=== PATIENT | female | born 1960 | race Two or more races ===

== ENCOUNTER 2017-01-14 15:10 | Emergency (ER) | payer SELFPAY | END 2017-01-14 16:49 | disposition left against medical advice (07) | LOC: ER 15:18 | DX: Z53.21 Procedure and treatment not carried out due to patient leaving prior to being seen by health care provider (principal) ==

== ENCOUNTER 2019-09-30 08:38 | Inpatient (IN) | payer MEDICARE, MEDICAID ==
[~2019-09-30] VITALS: Ht 152.4 cm; Wt 65.0 kg
[2019-09-30] MEDS ORDERED: HYDROCODONE/APAP 5/325MG 1 EACH TABLET PO ONE (09:00)
[2019-09-30] MEDS ORDERED: methylPREDNISolone SOD SUCC 125 MG/2ML VIAL IV ONE (09:00)
[2019-09-30] MEDS ORDERED: ALBUTEROL FS 2.5 MG/3 ML VIAL.NEB CONTNEB ONE (09:00)
[2019-09-30] MEDS ORDERED: methylPREDNISolone SOD SUCC 125 MG/2ML VIAL ONE ×2 (09:00→09:51)
[2019-09-30] MEDS ORDERED: ALBUTEROL FS 2.5 MG/3 ML VIAL.NEB NEB ONE (09:00)
[2019-09-30] MEDS ORDERED: HYDROCODONE/APAP 5/325MG 1 EACH TABLET ONE (09:01)
[2019-09-30] MEDS ORDERED: ALBUTEROL FS 2.5 MG/3 ML VIAL.NEB ONE (09:23)
[2019-09-30] MEDS ORDERED: ONDANSETRON HCL/PF 4 MG/2 ML VIAL ONE (09:51)
[2019-09-30] MEDS ORDERED: MORPHINE SULFATE INJ 2 MG/ML DISP.SYRIN ONE (09:52)
[2019-09-30 09:59] LABS: BASOPHILS # (AUTO) 0.1 /CMM (0.0-0.2); HEMATOCRIT 33 % (33-45); HEMOGLOBIN 11.1 g/dL (11.5-14.8); LYMPHOCYTES # (AUTO) 1.8 /CMM (0.8-4.8); LYMPHOCYTES % (AUTO) 13.6 % (20.0-44.0); MEAN CORPUSCULAR HGB CONC 33 g/dl (31.0-36.0); MEAN CORPUSCULAR VOLUME 91 fL (82-100); MONOCYTES # (AUTO) 0.8 /CMM (0.1-1.30); NEUTROPHILS # (AUTO) 10.3 /CMM (1.8-8.9); NEUTROPHILS % (AUTO) 76.4 % (43.0-81.0); PLATELET COUNT (AUTO) 345 /CMM (150-450); RED BLOOD CELL COUNT(AUTO) 3.66 MIL/uL (4.0-5.2); WHITE BLOOD COUNT (AUTO) 13.5 K/uL (4.3-11.0)
[2019-09-30] MEDS ORDERED: ONDANSETRON HCL/PF - ER 4 MG/2 ML VIAL IV ONE (10:00)
[2019-09-30] MEDS ORDERED: MORPHINE SULFATE INJ 2 MG/ML DISP.SYRIN IV ONE (10:00)
[2019-09-30 10:07] LABS: CALCIUM, SERUM 8.5 mg/dL (8.5-10.1); CARBON DIOXIDE 24 mmol/L (21-32); CHLORIDE 108 mmol/L (98-107); CREATININE 1.5 mg/dL (0.6-1.3); GLUCOSE 129 mg/dL (74-106); POTASSIUM 3.8 mmol/L (3.5-5.1); SODIUM SERUM 142 mmol/L (136-145); UREA NITROGEN, BLOOD 26 mg/dL (7-18)
[2019-09-30 10:19] LABS: ALANINE AMINOTRANSFERASE 43 U/L (12-78); ALBUMIN 2.9 g/dL (3.4-5.0); ALKALINE PHOSPHATASE 88 U/L (46-116); ASPARTATE AMINOTRANSFERASE 67 U/L (15-37); B-TYPE NATRIURETIC PEPTIDE 445 PG/ML (0-125); BILIRUBIN,DIRECT 0.1 mg/dL (0.0-0.2); BILIRUBIN,TOTAL 0.2 mg/dL (0.2-1.0)
[2019-09-30] MEDS ORDERED: FLUT16SP16 BNOSTRILS (10:22)
[2019-09-30] MEDS ORDERED: PROM118S PO (10:22)
[2019-09-30] MEDS ORDERED: TOPI50TA24 PO (10:22)
[2019-09-30] MEDS ORDERED: FLUT1BLS INH (10:22)
[2019-09-30] MEDS ORDERED: LEVO50TA8 PO (10:22)
[2019-09-30] MEDS ORDERED: ALBU18HF2 INH (10:22)
[2019-09-30] MEDS ORDERED: ACET-1951 PO (10:22)
[2019-09-30] MEDS ORDERED: FURO40TA5 PO (10:22)
[2019-09-30] MEDS ORDERED: DILT180C92 PO (10:22)
[2019-09-30] MEDS ORDERED: CARB200T PO (10:22)
[2019-09-30] MEDS ORDERED: PARI1CAP3 PO (10:22)
[2019-09-30] MEDS ORDERED: ONDA4VIA23 IM (10:22)
[2019-09-30] MEDS ORDERED: MONT10TA22 PO (10:22)
[2019-09-30] MEDS ORDERED: TEMA30CA PO (10:22)
[2019-09-30] MEDS ORDERED: MAG HYDROX/AL HYDROX/SIMETH 30 ML UDC PO PRN (12:00)
[2019-09-30] MEDS ORDERED: FLUTICASONE PROPIONATE 16 GM BOTTLE NS PRN (12:00)
[2019-09-30] MEDS ORDERED: Z GUARD REMEDY 2 OZ OINT TP PRN (12:00)
[2019-09-30] MEDS ORDERED: ONDANSETRON HCL/PF 4 MG/2 ML VIAL IVP PRN (12:00)
[2019-09-30] MEDS ORDERED: ZOLPIDEM TARTRATE 5 MG TABLET PO PRN (12:00)
[2019-09-30] MEDS ORDERED: MAGNESIUM HYDROXIDE 30 ML UDC PO PRN (12:00)
[2019-09-30] MEDS ORDERED: ACETAMINOPHEN 325 MG TABLET PO PRN (12:00)
[2019-09-30 12:59] LABS: MAGNESIUM 1.8 mg/dL (1.8-2.4); PHOSPHORUS 2.4 mg/dL (2.5-4.9)
[2019-09-30] MEDS ORDERED: BUMETANIDE INJ 4 MG in IV D5W 24 ML IV ONE (13:00)
[2019-09-30 13:51] LABS: THYROID STIMULATING HORMONE 1.608 uIU/mL (0.358-3.74)
[2019-09-30 15:00] VITALS: BP 102/50
[2019-09-30 16:00] VITALS: BP 113/73
[2019-09-30] MEDS: PROCHLORPERAZINE EDISYLATE 10 MG/2 ML VIAL IM PRN (16:06)
[2019-09-30] MEDS: ENOXAPARIN SODIUM 80 MG/0.8 ML DISP.SYRIN SQ SCH ×2 (16:13→21:00)
[2019-09-30] MEDS: IPRATROPIUM NEB FS 0.5 MG/2.5 ML AMPUL.NEB NEB SCH ×3 (16:57→22:58)
[2019-09-30] MEDS: MORPHINE SULFATE INJ 2 MG/ML DISP.SYRIN IV PRN ×2 (17:26→23:53)
[2019-09-30] MEDS: DIGOXIN INJ 0.5 MG/2 ML AMPUL IV SCH (17:26)
[2019-09-30] MEDS: LEVOFLOXACIN 750 MG /D5W 150ML 150 ML IV SCH (17:26)
[2019-09-30 20:00] VITALS: BP 106/75
[2019-09-30] MEDS: TOPIRAMATE 25 MG TABLET PO SCH (22:14)
[2019-09-30] MEDS: TEMAZEPAM 15 MG CAPSULE PO SCH (22:14)
[2019-09-30] MEDS: CARBAMAZEPINE 200 MG TABLET PO SCH (22:15)
[2019-10-01] VITALS: BP 104/61
[2019-10-01] MEDS: DIGOXIN INJ 0.5 MG/2 ML AMPUL IV SCH ×2 (01:12→06:09)
[2019-10-01] MEDS: IPRATROPIUM NEB FS 0.5 MG/2.5 ML AMPUL.NEB NEB SCH ×6 (03:22→23:30)
[2019-10-01 04:00] VITALS: BP 111/68
[2019-10-01] MEDS: PROCHLORPERAZINE EDISYLATE 10 MG/2 ML VIAL IM PRN ×2 (06:19→21:46)
[2019-10-01] MEDS: MORPHINE SULFATE INJ 2 MG/ML DISP.SYRIN IV PRN ×2 (06:28→13:05)
[2019-10-01] MEDS: LEVOTHYROXINE SODIUM 50 MCG TABLET PO SCH (06:35)
[2019-10-01 07:50] LABS: BASOPHILS % (AUTO) 0.4 % (0.0-2.0); EOSINOPHILS % (AUTO) 2.6 % (0.0-6.0); HEMATOCRIT 31 % (33-45); HEMOGLOBIN 10.3 g/dL (11.5-14.8); LYMPHOCYTES # (AUTO) 1.4 /CMM (0.8-4.8); LYMPHOCYTES % (AUTO) 12.3 % (20.0-44.0); MEAN CORPUSCULAR HGB CONC 33 g/dl (31.0-36.0); MEAN CORPUSCULAR VOLUME 92 fL (82-100); MONOCYTES # (AUTO) 0.8 /CMM (0.1-1.30); NEUTROPHILS # (AUTO) 8.8 /CMM (1.8-8.9); NEUTROPHILS % (AUTO) 77.7 % (43.0-81.0); PLATELET COUNT (AUTO) 305 /CMM (150-450); RED BLOOD CELL COUNT(AUTO) 3.41 MIL/uL (4.0-5.2); WHITE BLOOD COUNT (AUTO) 11.3 K/uL (4.3-11.0)
[2019-10-01 08:00] VITALS: BP 92/50
[2019-10-01 08:01] VITALS: BP 92/50
[2019-10-01 08:07] LABS: CALCIUM, SERUM 8.1 mg/dL (8.5-10.1); CREATININE 1.4 mg/dL (0.6-1.3); MAGNESIUM 1.8 mg/dL (1.8-2.4); PHOSPHORUS 3.3 mg/dL (2.5-4.9); POTASSIUM 3.6 mmol/L (3.5-5.1)
[2019-10-01 08:23] LABS: THYROID STIMULATING HORMONE 2.988 uIU/mL (0.358-3.74)
[2019-10-01] MEDS ORDERED: FLUTICASONE/VILANTEROL 1 EACH BLST.W.DEV IH SCH (09:00)
[2019-10-01] MEDS ORDERED: DILTIAZEM HCL CD 180 MG PO SCH (09:00)
[2019-10-01] MEDS: MONTELUKAST SODIUM (10MG) 10 MG TABLET PO SCH (09:31)
[2019-10-01] MEDS: FUROSEMIDE 40 MG/4 ML VIAL IV SCH ×4 (09:31→16:51)
[2019-10-01] MEDS: RIVAROXABAN 15 MG TABLET PO SCH ×2 (09:32→16:52)
[2019-10-01] MEDS: TOPIRAMATE 25 MG TABLET PO SCH ×2 (09:32→21:09)
[2019-10-01] MEDS: Paricalcitol 1 MCG PO SCH (09:58)
[2019-10-01] MEDS: DRONEDARONE HYDROCHLORIDE 400 MG TABLET PO SCH ×2 (09:58→16:52)
[2019-10-01] MEDS: methylPREDNISolone SOD SUCC 125 MG/2ML VIAL IV SCH ×3 (11:24→21:09)
[2019-10-01 12:06] LABS: *SPE A/G RATIO 0.8 (0.7-1.7); *SPE ALBUMIN 2.8 g/dL (2.9-4.4); *SPE ALPHA-1-GLOBULIN 0.4 g/dL (0.0-0.4); *SPE ALPHA-2-GLOBULIN 1.3 g/dL (0.4-1.0); *SPE BETA GLOBULIN 0.8 g/dL (0.7-1.3); *SPE GLOBULIN, TOTAL 3.6 g/dL (2.2-3.9); *SPE M-SPIKE Not Observed g/dL (Not Observed); *SPEGAMMA GLOBULIN 1.1 g/dL (0.4-1.8)
[2019-10-01] MEDS: LORAZEPAM INJ 2 MG/ML VIAL IV PRN (13:01)
[2019-10-01 14:23] LABS: ABG BASE EXCESS -3.1 mmol/L; ABG OXYGEN SATURATION 96.5 % (92.0-98.5); ABG PCO2 26.9 mmHg (35.0-45.0); ABG PH 7.471 (7.350-7.450); ABG PO2 86.1 mmHg (75.0-100.0); COHb 0.5 % (0.5-1.5); MetHb 0.3 % (0.0-1.5); O2Hb 95.7 % (94.0-97.0); SITE, ABG Left Radial; VENT MODE, BG 1L NC
[2019-10-01 16:00] VITALS: BP 105/65
[2019-10-01] MEDS: LEVOFLOXACIN 750 MG /D5W 150ML 150 ML IV SCH (16:50)
[2019-10-01 20:00] VITALS: BP 105/67
[2019-10-01] MEDS ORDERED: ALTEPLASE 100 MG/VIAL VIAL IV ONE ×2 (20:00→20:30)
[2019-10-01] MEDS ORDERED: ALTEPLASE CATHFLO 2 MG/VIAL IV ONE (20:00)
[2019-10-01] MEDS: CARBAMAZEPINE 200 MG TABLET PO SCH (22:17)
[2019-10-01] MEDS: TEMAZEPAM 15 MG CAPSULE PO SCH (22:18)
[2019-10-02] MEDS: LORAZEPAM INJ 2 MG/ML VIAL IV PRN ×2 (01:14→14:58)
[2019-10-02] MEDS: IPRATROPIUM NEB FS 0.5 MG/2.5 ML AMPUL.NEB NEB SCH ×6 (04:03→23:30)
[2019-10-02] MEDS: methylPREDNISolone SOD SUCC 125 MG/2ML VIAL IV SCH (04:31)
[2019-10-02 07:03] LABS: BASOPHILS % (AUTO) 0.2 % (0.0-2.0); HEMATOCRIT 34 % (33-45); HEMOGLOBIN 11.2 g/dL (11.5-14.8); LYMPHOCYTES # (AUTO) 1.2 /CMM (0.8-4.8); LYMPHOCYTES % (AUTO) 11.6 % (20.0-44.0); MEAN CORPUSCULAR HGB CONC 33 g/dl (31.0-36.0); MEAN CORPUSCULAR VOLUME 90 fL (82-100); MONOCYTES # (AUTO) 0.3 /CMM (0.1-1.30); MONOCYTES % (AUTO) 3.3 % (2.0-12.0); NEUTROPHILS # (AUTO) 9.1 /CMM (1.8-8.9); NEUTROPHILS % (AUTO) 84.9 % (43.0-81.0); PLATELET COUNT (AUTO) 421 /CMM (150-450); RED BLOOD CELL COUNT(AUTO) 3.75 MIL/uL (4.0-5.2); WHITE BLOOD COUNT (AUTO) 10.7 K/uL (4.3-11.0)
[2019-10-02 07:27] LABS: ALBUMIN 2.8 g/dL (3.4-5.0); BILIRUBIN,TOTAL 0.2 mg/dL (0.2-1.0); CREATININE 1.8 mg/dL (0.6-1.3); MAGNESIUM 1.9 mg/dL (1.8-2.4); PHOSPHORUS 5.2 mg/dL (2.5-4.9); POTASSIUM 4.2 mmol/L (3.5-5.1); TOTAL PROTEIN, SERUM 7.3 g/dL (6.4-8.2)
[2019-10-02 08:00] VITALS: BP 94/48
[2019-10-02] MEDS: LEVOTHYROXINE SODIUM 50 MCG TABLET PO SCH (08:17)
[2019-10-02] MEDS: Paricalcitol 1 MCG PO SCH (08:26)
[2019-10-02] MEDS: DRONEDARONE HYDROCHLORIDE 400 MG TABLET PO SCH ×2 (08:26→16:48)
[2019-10-02] MEDS: TOPIRAMATE 25 MG TABLET PO SCH ×2 (08:27→22:05)
[2019-10-02] MEDS: MONTELUKAST SODIUM (10MG) 10 MG TABLET PO SCH (08:27)
[2019-10-02] MEDS: RIVAROXABAN 15 MG TABLET PO SCH ×2 (08:28→16:47)
[2019-10-02] MEDS: MORPHINE SULFATE INJ 2 MG/ML DISP.SYRIN IV PRN ×3 (10:19→23:39)
[2019-10-02 12:06] LABS: PTH, INTACT 94 pg/mL (15-65)
[2019-10-02 16:00] VITALS: BP 97/54
[2019-10-02] MEDS: LEVOFLOXACIN 750 MG /D5W 150ML 150 ML IV SCH (16:44)
[2019-10-02] MEDS: PROCHLORPERAZINE EDISYLATE 10 MG/2 ML VIAL IM PRN (18:07)
[2019-10-02 20:00] VITALS: BP_SYST 90; BP_SYST 97; BP_DIAS 49; BP_DIAS 65
[2019-10-02] MEDS: TEMAZEPAM 15 MG CAPSULE PO SCH (22:06)
[2019-10-02] MEDS: CARBAMAZEPINE 200 MG TABLET PO SCH (22:06)
[2019-10-03] MEDS: LORAZEPAM INJ 2 MG/ML VIAL IV PRN ×3 (01:29→19:30)
[2019-10-03] MEDS: IPRATROPIUM NEB FS 0.5 MG/2.5 ML AMPUL.NEB NEB SCH ×6 (03:30→23:17)
[2019-10-03 06:40] LABS: BASOPHILS # (AUTO) 0.1 /CMM (0.0-0.2); BASOPHILS % (AUTO) 0.4 % (0.0-2.0); EOSINOPHILS % (AUTO) 1.3 % (0.0-6.0); HEMATOCRIT 33 % (33-45); HEMOGLOBIN 10.9 g/dL (11.5-14.8); LYMPHOCYTES # (AUTO) 1.4 /CMM (0.8-4.8); LYMPHOCYTES % (AUTO) 11.7 % (20.0-44.0); MEAN CORPUSCULAR HGB CONC 33 g/dl (31.0-36.0); MEAN CORPUSCULAR VOLUME 91 fL (82-100); MONOCYTES # (AUTO) 0.9 /CMM (0.1-1.30); NEUTROPHILS # (AUTO) 9.2 /CMM (1.8-8.9); NEUTROPHILS % (AUTO) 78.6 % (43.0-81.0); PLATELET COUNT (AUTO) 344 /CMM (150-450); RED BLOOD CELL COUNT(AUTO) 3.67 MIL/uL (4.0-5.2); WHITE BLOOD COUNT (AUTO) 11.8 K/uL (4.3-11.0)
[2019-10-03 06:46] LABS: *SPE A/G RATIO 0.9 (0.7-1.7); *SPE ALBUMIN 2.7 g/dL (2.9-4.4); *SPE ALPHA-1-GLOBULIN 0.4 g/dL (0.0-0.4); *SPE ALPHA-2-GLOBULIN 1.2 g/dL (0.4-1.0); *SPE BETA GLOBULIN 0.7 g/dL (0.7-1.3); *SPE GLOBULIN, TOTAL 3.1 g/dL (2.2-3.9); *SPE M-SPIKE Not Observed g/dL (Not Observed); *SPEGAMMA GLOBULIN 0.9 g/dL (0.4-1.8)
[2019-10-03 06:46] LABS: CALCIUM, SERUM 8.4 mg/dL (8.5-10.1); CREATININE 1.8 mg/dL (0.6-1.3); PHOSPHORUS 4.2 mg/dL (2.5-4.9); POTASSIUM 3.5 mmol/L (3.5-5.1)
[2019-10-03 08:00] VITALS: BP 81/48
[2019-10-03] MEDS: MONTELUKAST SODIUM (10MG) 10 MG TABLET PO SCH (09:00)
[2019-10-03] MEDS: LEVOTHYROXINE SODIUM 50 MCG TABLET PO SCH (09:00)
[2019-10-03] MEDS: DRONEDARONE HYDROCHLORIDE 400 MG TABLET PO SCH ×2 (09:00→16:57)
[2019-10-03] MEDS: TOPIRAMATE 25 MG TABLET PO SCH ×2 (09:01→21:32)
[2019-10-03] MEDS: RIVAROXABAN 15 MG TABLET PO SCH ×2 (09:03→16:59)
[2019-10-03] MEDS: MORPHINE SULFATE INJ 2 MG/ML DISP.SYRIN IV PRN ×3 (09:04→23:30)
[2019-10-03] MEDS: Paricalcitol 1 MCG PO SCH (09:04)
[2019-10-03 16:00] VITALS: BP 88/53
[2019-10-03] MEDS: LEVOFLOXACIN 750 MG /D5W 150ML 150 ML IV SCH (16:23)
[2019-10-03] MEDS ORDERED: ONDANSETRON HCL/PF 4 MG/2 ML VIAL IV PRN (18:00)
[2019-10-03 18:10] VITALS: BP 88/53
[2019-10-03] MEDS: PROCHLORPERAZINE EDISYLATE 10 MG/2 ML VIAL IM PRN (19:01)
[2019-10-03 20:00] VITALS: BP 95/60
[2019-10-03 21:15] VITALS: BP 95/60
[2019-10-03] MEDS: CARBAMAZEPINE 200 MG TABLET PO SCH (21:32)
[2019-10-03] MEDS: TEMAZEPAM 15 MG CAPSULE PO SCH (21:32)
[2019-10-04] VITALS: BP 90/47
[2019-10-04 00:04] LABS: APPEARANCE,URINE SL CLOUDY (CLEAR); BILIRUBIN,URINE NEGATIVE (NEGATIVE); BLOOD, URINE NEGATIVE Ery/uL (NEGATIVE); COLOR,URINE YELLOW (YELLOW); KETONES,URINE NEGATIVE (NEGATIVE); LEUKOCYTE ESTERASE ,URINE NEGATIVE (NEGATIVE); NITRITE, URINE NEGATIVE (NEGATIVE); PH,URINE 5.5 (5.0-8.0); PROTEIN,URINE NEGATIVE (NEGATIVE); UGLUCOSE NEGATIVE (NEGATIVE); UROBILINOGEN,URINE 0.2 EU/dL (0.2)
[2019-10-04 00:40] LABS: URINE TOTAL PROTEIN 12.6 mg/dL (0-11.9)
[2019-10-04] MEDS: IPRATROPIUM NEB FS 0.5 MG/2.5 ML AMPUL.NEB NEB SCH ×6 (03:27→23:30)
[2019-10-04 04:00] VITALS: BP 102/57
[2019-10-04] MEDS: MORPHINE SULFATE INJ 2 MG/ML DISP.SYRIN IV PRN ×3 (06:58→20:49)
[2019-10-04 07:24] LABS: BASOPHILS % (AUTO) 0.4 % (0.0-2.0); EOSINOPHILS % (AUTO) 3.7 % (0.0-6.0); HEMATOCRIT 33 % (33-45); HEMOGLOBIN 10.9 g/dL (11.5-14.8); LYMPHOCYTES # (AUTO) 1.9 /CMM (0.8-4.8); LYMPHOCYTES % (AUTO) 16.9 % (20.0-44.0); MEAN CORPUSCULAR HGB CONC 33 g/dl (31.0-36.0); MEAN CORPUSCULAR VOLUME 89 fL (82-100); MONOCYTES # (AUTO) 0.9 /CMM (0.1-1.30); MONOCYTES % (AUTO) 7.5 % (2.0-12.0); NEUTROPHILS # (AUTO) 8.3 /CMM (1.8-8.9); NEUTROPHILS % (AUTO) 71.5 % (43.0-81.0); PLATELET COUNT (AUTO) 375 /CMM (150-450); RED BLOOD CELL COUNT(AUTO) 3.69 MIL/uL (4.0-5.2); WHITE BLOOD COUNT (AUTO) 11.5 K/uL (4.3-11.0)
[2019-10-04 07:51] LABS: CALCIUM, SERUM 8.3 mg/dL (8.5-10.1); CREATININE 1.7 mg/dL (0.6-1.3); PHOSPHORUS 3.2 mg/dL (2.5-4.9); POTASSIUM 3.3 mmol/L (3.5-5.1)
[2019-10-04 08:00] VITALS: BP 95/56
[2019-10-04] MEDS: LEVOTHYROXINE SODIUM 50 MCG TABLET PO SCH (08:59)
[2019-10-04] MEDS: TOPIRAMATE 25 MG TABLET PO SCH ×2 (08:59→21:31)
[2019-10-04] MEDS: Paricalcitol 1 MCG PO SCH (08:59)
[2019-10-04] MEDS: MONTELUKAST SODIUM (10MG) 10 MG TABLET PO SCH (08:59)
[2019-10-04] MEDS: RIVAROXABAN 15 MG TABLET PO SCH ×2 (09:01→16:11)
[2019-10-04] MEDS ORDERED: POTASSIUM CHLORIDE 10 MEQ TABLET.SA PO ONE (12:00)
[2019-10-04 16:00] VITALS: BP 107/55
[2019-10-04] MEDS: ONDANSETRON HCL/PF 4 MG/2 ML VIAL IV PRN (16:10)
[2019-10-04 20:32] VITALS: BP 100/57
[2019-10-04] MEDS: CARBAMAZEPINE 200 MG TABLET PO SCH (21:52)
[2019-10-04] MEDS: TEMAZEPAM 15 MG CAPSULE PO SCH (21:52)
[2019-10-05] MEDS: MORPHINE SULFATE INJ 2 MG/ML DISP.SYRIN IV PRN ×3 (02:43→18:21)
[2019-10-05] MEDS: IPRATROPIUM NEB FS 0.5 MG/2.5 ML AMPUL.NEB NEB SCH ×6 (03:16→23:06)
[2019-10-05] MEDS: LORAZEPAM INJ 2 MG/ML VIAL IV PRN ×2 (07:44→20:29)
[2019-10-05] MEDS: LEVOTHYROXINE SODIUM 50 MCG TABLET PO SCH (07:44)
[2019-10-05] MEDS: HYDROCODONE/APAP 5/325MG 1 EACH TABLET PO PRN ×2 (07:49→15:45)
[2019-10-05] MEDS: TOPIRAMATE 25 MG TABLET PO SCH ×2 (08:01→22:09)
[2019-10-05] MEDS: MONTELUKAST SODIUM (10MG) 10 MG TABLET PO SCH (08:01)
[2019-10-05] MEDS: Paricalcitol 1 MCG PO SCH (08:05)
[2019-10-05] MEDS: RIVAROXABAN 15 MG TABLET PO SCH ×2 (08:05→17:12)
[2019-10-05 08:11] LABS: BASOPHILS # (AUTO) 0.1 /CMM (0.0-0.2); BASOPHILS % (AUTO) 0.6 % (0.0-2.0); EOSINOPHILS % (AUTO) 9.3 % (0.0-6.0); HEMATOCRIT 32 % (33-45); HEMOGLOBIN 10.5 g/dL (11.5-14.8); LYMPHOCYTES # (AUTO) 1.1 /CMM (0.8-4.8); LYMPHOCYTES % (AUTO) 12.1 % (20.0-44.0); MEAN CORPUSCULAR HGB CONC 33 g/dl (31.0-36.0); MEAN CORPUSCULAR VOLUME 90 fL (82-100); MONOCYTES # (AUTO) 0.4 /CMM (0.1-1.30); MONOCYTES % (AUTO) 4.5 % (2.0-12.0); NEUTROPHILS % (AUTO) 73.5 % (43.0-81.0); PLATELET COUNT (AUTO) 314 /CMM (150-450); RED BLOOD CELL COUNT(AUTO) 3.55 MIL/uL (4.0-5.2); WHITE BLOOD COUNT (AUTO) 9.5 K/uL (4.3-11.0)
[2019-10-05 08:12] VITALS: BP 92/46
[2019-10-05 08:14] LABS: CALCIUM, SERUM 8.3 mg/dL (8.5-10.1); CREATININE 1.6 mg/dL (0.6-1.3); MAGNESIUM 1.9 mg/dL (1.8-2.4); PHOSPHORUS 2.6 mg/dL (2.5-4.9); POTASSIUM 3.5 mmol/L (3.5-5.1)
[2019-10-05 16:20] VITALS: BP 120/58
[2019-10-05] MEDS: LEVOFLOXACIN 750 MG /D5W 150ML 150 ML IV SCH (17:10)
[2019-10-05 20:00] VITALS: BP_SYST 179; BP_SYST 97; BP_DIAS 53; BP_DIAS 76
[2019-10-05] MEDS: ONDANSETRON HCL/PF 4 MG/2 ML VIAL IV PRN (22:09)
[2019-10-05] MEDS: TEMAZEPAM 15 MG CAPSULE PO SCH (22:47)
[2019-10-05] MEDS: CARBAMAZEPINE 200 MG TABLET PO SCH (22:47)
[2019-10-06 01:20] VITALS: BP 95/54
[2019-10-06] MEDS: MORPHINE SULFATE INJ 2 MG/ML DISP.SYRIN IV PRN ×4 (01:23→21:23)
[2019-10-06] MEDS: IPRATROPIUM NEB FS 0.5 MG/2.5 ML AMPUL.NEB NEB SCH ×6 (03:29→22:43)
[2019-10-06] MEDS: LORAZEPAM INJ 2 MG/ML VIAL IV PRN ×2 (06:43→17:40)
[2019-10-06 07:22] LABS: BASOPHILS # (AUTO) 0.1 /CMM (0.0-0.2); BASOPHILS % (AUTO) 0.5 % (0.0-2.0); EOSINOPHILS % (AUTO) 5.1 % (0.0-6.0); HEMATOCRIT 31 % (33-45); HEMOGLOBIN 10.1 g/dL (11.5-14.8); LYMPHOCYTES # (AUTO) 1.8 /CMM (0.8-4.8); LYMPHOCYTES % (AUTO) 13.3 % (20.0-44.0); MEAN CORPUSCULAR HGB CONC 32 g/dl (31.0-36.0); MEAN CORPUSCULAR VOLUME 89 fL (82-100); MONOCYTES % (AUTO) 7.7 % (2.0-12.0); NEUTROPHILS # (AUTO) 9.8 /CMM (1.8-8.9); NEUTROPHILS % (AUTO) 73.4 % (43.0-81.0); PLATELET COUNT (AUTO) 344 /CMM (150-450); RED BLOOD CELL COUNT(AUTO) 3.51 MIL/uL (4.0-5.2); WHITE BLOOD COUNT (AUTO) 13.4 K/uL (4.3-11.0)
[2019-10-06 07:24] LABS: CALCIUM, SERUM 8.5 mg/dL (8.5-10.1); CREATININE 1.5 mg/dL (0.6-1.3); MAGNESIUM 1.8 mg/dL (1.8-2.4); PHOSPHORUS 2.3 mg/dL (2.5-4.9); POTASSIUM 3.7 mmol/L (3.5-5.1)
[2019-10-06] MEDS: MONTELUKAST SODIUM (10MG) 10 MG TABLET PO SCH (08:02)
[2019-10-06] MEDS: TOPIRAMATE 25 MG TABLET PO SCH ×2 (08:02→21:15)
[2019-10-06] MEDS: Paricalcitol 1 MCG PO SCH (08:02)
[2019-10-06] MEDS: LEVOTHYROXINE SODIUM 50 MCG TABLET PO SCH (08:02)
[2019-10-06] MEDS: RIVAROXABAN 15 MG TABLET PO SCH ×2 (08:04→16:11)
[2019-10-06 08:31] VITALS: BP 94/52
[2019-10-06] MEDS ORDERED: NEUTRA PHOS 1 POWD.PACKET GT ONE (11:30)
[2019-10-06] MEDS: HYDROCODONE/APAP 5/325MG 1 EACH TABLET PO PRN (11:31)
[2019-10-06 16:07] VITALS: BP 90/48
[2019-10-06] MEDS: diphenhydrAMINE HCL 25 MG CAPSULE PO PRN (16:09)
[2019-10-06 20:00] VITALS: BP_SYST 88; BP_SYST 92; BP_DIAS 49; BP_DIAS 56
[2019-10-06] MEDS: TEMAZEPAM 15 MG CAPSULE PO SCH (22:56)
[2019-10-06] MEDS: CARBAMAZEPINE 200 MG TABLET PO SCH (22:56)
[2019-10-07] MEDS: diphenhydrAMINE HCL 25 MG CAPSULE PO PRN ×3 (02:26→16:11)
[2019-10-07] MEDS: MORPHINE SULFATE INJ 2 MG/ML DISP.SYRIN IV PRN (03:37)
[2019-10-07] MEDS: IPRATROPIUM NEB FS 0.5 MG/2.5 ML AMPUL.NEB NEB SCH ×6 (03:43→23:25)
[2019-10-07 06:51] LABS: CALCIUM, SERUM 8.1 mg/dL (8.5-10.1); CREATININE 1.4 mg/dL (0.6-1.3); PHOSPHORUS 3.2 mg/dL (2.5-4.9); POTASSIUM 3.6 mmol/L (3.5-5.1)
[2019-10-07] MEDS: LEVOTHYROXINE SODIUM 50 MCG TABLET PO SCH (07:50)
[2019-10-07] MEDS: LORAZEPAM INJ 2 MG/ML VIAL IV PRN ×3 (07:51→20:50)
[2019-10-07 08:00] VITALS: BP 95/59
[2019-10-07] MEDS: TOPIRAMATE 25 MG TABLET PO SCH ×2 (08:02→21:09)
[2019-10-07] MEDS: MONTELUKAST SODIUM (10MG) 10 MG TABLET PO SCH (08:02)
[2019-10-07] MEDS: Paricalcitol 1 MCG PO SCH (09:00)
[2019-10-07] MEDS: RIVAROXABAN 15 MG TABLET PO SCH ×2 (10:10→17:09)
[2019-10-07] MEDS: HYDROCODONE/APAP 5/325MG 1 EACH TABLET PO PRN (11:02)
[2019-10-07] MEDS: LEVOFLOXACIN 750 MG /D5W 150ML 150 ML IV SCH (16:11)
[2019-10-07] MEDS: ONDANSETRON HCL/PF 4 MG/2 ML VIAL IV PRN (19:26)
[2019-10-07 20:00] VITALS: BP 96/59
[2019-10-07 20:11] VITALS: BP 96/59
[2019-10-07] MEDS: CARBAMAZEPINE 200 MG TABLET PO SCH (21:09)
[2019-10-07] MEDS: TEMAZEPAM 15 MG CAPSULE PO SCH (21:52)
[2019-10-08] MEDS: HYDROCODONE/APAP 5/325MG 1 EACH TABLET PO PRN ×4 (02:24→18:44)
[2019-10-08] MEDS: LORAZEPAM INJ 2 MG/ML VIAL IV PRN ×4 (03:02→22:24)
[2019-10-08] MEDS: IPRATROPIUM NEB FS 0.5 MG/2.5 ML AMPUL.NEB NEB SCH ×6 (03:31→23:04)
[2019-10-08] MEDS: diphenhydrAMINE HCL 25 MG CAPSULE PO PRN ×2 (04:01→11:59)
[2019-10-08 08:00] VITALS: BP 99/56
[2019-10-08] MEDS: TOPIRAMATE 25 MG TABLET PO SCH ×2 (08:08→20:08)
[2019-10-08] MEDS: LEVOTHYROXINE SODIUM 50 MCG TABLET PO SCH (08:08)
[2019-10-08] MEDS: MONTELUKAST SODIUM (10MG) 10 MG TABLET PO SCH (08:08)
[2019-10-08] MEDS: Paricalcitol 1 MCG PO SCH (08:12)
[2019-10-08] MEDS: RIVAROXABAN 15 MG TABLET PO SCH ×2 (08:12→16:10)
[2019-10-08] MEDS ORDERED: BUMETANIDE INJ 4 MG in IV D5W 24 ML IV ONE (10:00)
[2019-10-08] MEDS: ONDANSETRON HCL/PF 4 MG/2 ML VIAL IV PRN (15:20)
[2019-10-08 20:00] VITALS: BP 92/53
[2019-10-08] MEDS: CARBAMAZEPINE 200 MG TABLET PO SCH (21:09)
[2019-10-08 23:57] VITALS: BP 94/54
[2019-10-09 01:57] VITALS: BP 99/45
[2019-10-09] MEDS: HYDROCODONE/APAP 5/325MG 1 EACH TABLET PO PRN ×3 (01:59→14:46)
[2019-10-09] MEDS: diphenhydrAMINE HCL 25 MG CAPSULE PO PRN ×2 (02:39→22:27)
[2019-10-09] MEDS: IPRATROPIUM NEB FS 0.5 MG/2.5 ML AMPUL.NEB NEB SCH ×6 (02:51→22:45)
[2019-10-09] MEDS: LORAZEPAM INJ 2 MG/ML VIAL IV PRN ×3 (04:43→18:57)
[2019-10-09 08:00] VITALS: BP 110/60
[2019-10-09] MEDS: MONTELUKAST SODIUM (10MG) 10 MG TABLET PO SCH (08:28)
[2019-10-09] MEDS: LEVOTHYROXINE SODIUM 50 MCG TABLET PO SCH (08:28)
[2019-10-09] MEDS: RIVAROXABAN 15 MG TABLET PO SCH ×2 (08:43→17:22)
[2019-10-09] MEDS: Paricalcitol 1 MCG PO SCH (09:00)
[2019-10-09 09:25] LABS: CALCIUM, SERUM 8.1 mg/dL (8.5-10.1); CREATININE 1.5 mg/dL (0.6-1.3); POTASSIUM 3.4 mmol/L (3.5-5.1)
[2019-10-09 09:26] LABS: BASOPHILS # (AUTO) 0.1 /CMM (0.0-0.2); BASOPHILS % (AUTO) 0.5 % (0.0-2.0); EOSINOPHILS % (AUTO) 2.9 % (0.0-6.0); HEMATOCRIT 28 % (33-45); HEMOGLOBIN 9.2 g/dL (11.5-14.8); LYMPHOCYTES # (AUTO) 1.8 /CMM (0.8-4.8); LYMPHOCYTES % (AUTO) 11.7 % (20.0-44.0); MEAN CORPUSCULAR HGB CONC 33 g/dl (31.0-36.0); MEAN CORPUSCULAR VOLUME 89 fL (82-100); MONOCYTES # (AUTO) 1.1 /CMM (0.1-1.30); MONOCYTES % (AUTO) 7.4 % (2.0-12.0); NEUTROPHILS # (AUTO) 11.7 /CMM (1.8-8.9); NEUTROPHILS % (AUTO) 77.5 % (43.0-81.0); PLATELET COUNT (AUTO) 298 /CMM (150-450); RED BLOOD CELL COUNT(AUTO) 3.12 MIL/uL (4.0-5.2); WHITE BLOOD COUNT (AUTO) 15.1 K/uL (4.3-11.0)
[2019-10-09] MEDS: FUROSEMIDE 40 MG/4 ML VIAL IV SCH ×3 (09:53→17:22)
[2019-10-09] MEDS: methylPREDNISolone SOD SUCC 125 MG/2ML VIAL IV SCH ×3 (09:55→21:01)
[2019-10-09] MEDS: TOPIRAMATE 25 MG TABLET PO SCH ×2 (10:07→21:01)
[2019-10-09] MEDS ORDERED: POTASSIUM CHLORIDE 20 MEQ TAB.PRT.SR PO ONE (13:00)
[2019-10-09 16:00] VITALS: BP 92/63
[2019-10-09] MEDS: LEVOFLOXACIN 750 MG /D5W 150ML 150 ML IV SCH (16:44)
[2019-10-09 20:00] VITALS: BP 93/52
[2019-10-09] MEDS: TEMAZEPAM 15 MG CAPSULE PO SCH ×2 (21:01)
[2019-10-09] MEDS: CARBAMAZEPINE 200 MG TABLET PO SCH (21:02)
[2019-10-09] MEDS: ONDANSETRON HCL/PF 4 MG/2 ML VIAL IV PRN (21:02)
[2019-10-09 21:36] VITALS: BP 93/52
[2019-10-10] MEDS: LORAZEPAM INJ 2 MG/ML VIAL IV PRN ×3 (02:30→21:52)
[2019-10-10] MEDS: IPRATROPIUM NEB FS 0.5 MG/2.5 ML AMPUL.NEB NEB SCH ×6 (03:30→23:59)
[2019-10-10 04:00] VITALS: BP 98/61
[2019-10-10] MEDS: methylPREDNISolone SOD SUCC 125 MG/2ML VIAL IV SCH ×3 (04:53→21:03)
[2019-10-10 05:12] VITALS: BP 96/54
[2019-10-10 06:23] LABS: BASOPHILS % (AUTO) 0.1 % (0.0-2.0); HEMATOCRIT 30 % (33-45); HEMOGLOBIN 9.7 g/dL (11.5-14.8); LYMPHOCYTES # (AUTO) 1.3 /CMM (0.8-4.8); LYMPHOCYTES % (AUTO) 8.9 % (20.0-44.0); MEAN CORPUSCULAR HGB CONC 33 g/dl (31.0-36.0); MEAN CORPUSCULAR VOLUME 89 fL (82-100); MONOCYTES # (AUTO) 0.4 /CMM (0.1-1.30); NEUTROPHILS # (AUTO) 12.9 /CMM (1.8-8.9); PLATELET COUNT (AUTO) 363 /CMM (150-450); RED BLOOD CELL COUNT(AUTO) 3.32 MIL/uL (4.0-5.2); WHITE BLOOD COUNT (AUTO) 14.7 K/uL (4.3-11.0)
[2019-10-10 06:58] LABS: ALBUMIN 2.1 g/dL (3.4-5.0); BILIRUBIN,TOTAL 0.3 mg/dL (0.2-1.0); CALCIUM, SERUM 8.5 mg/dL (8.5-10.1); CREATININE 1.6 mg/dL (0.6-1.3); PHOSPHORUS 4.6 mg/dL (2.5-4.9); POTASSIUM 4.2 mmol/L (3.5-5.1); TOTAL PROTEIN, SERUM 6.7 g/dL (6.4-8.2)
[2019-10-10 08:00] VITALS: BP 99/54
[2019-10-10] MEDS: MONTELUKAST SODIUM (10MG) 10 MG TABLET PO SCH (08:12)
[2019-10-10] MEDS: TOPIRAMATE 25 MG TABLET PO SCH ×2 (08:12→21:03)
[2019-10-10] MEDS: LEVOTHYROXINE SODIUM 50 MCG TABLET PO SCH (08:12)
[2019-10-10] MEDS: RIVAROXABAN 15 MG TABLET PO SCH ×2 (08:14→16:11)
[2019-10-10] MEDS: Paricalcitol 1 MCG PO SCH (09:00)
[2019-10-10] MEDS: HYDROCODONE/APAP 5/325MG 1 EACH TABLET PO PRN ×2 (10:27→21:04)
[2019-10-10] MEDS: SOD FERRIC GLUC 125 MG in IV NS 0.9% 100 ML IV SCH (15:34)
[2019-10-10 16:00] VITALS: BP 116/75
[2019-10-10 20:00] VITALS: BP 113/62
[2019-10-10] MEDS: CARBAMAZEPINE 200 MG TABLET PO SCH (21:51)
[2019-10-10] MEDS: TEMAZEPAM 15 MG CAPSULE PO SCH (21:52)
[2019-10-11] MEDS: ONDANSETRON HCL/PF 4 MG/2 ML VIAL IV PRN ×3 (00:34→18:49)
[2019-10-11 00:58] VITALS: BP 113/62
[2019-10-11] MEDS: HYDROCODONE/APAP 5/325MG 1 EACH TABLET PO PRN ×3 (03:12→18:35)
[2019-10-11] MEDS: IPRATROPIUM NEB FS 0.5 MG/2.5 ML AMPUL.NEB NEB SCH ×5 (03:30→19:54)
[2019-10-11] MEDS: methylPREDNISolone SOD SUCC 125 MG/2ML VIAL IV SCH ×2 (05:03→12:30)
[2019-10-11] MEDS: LORAZEPAM INJ 2 MG/ML VIAL IV PRN ×3 (05:10→19:46)
[2019-10-11 07:15] LABS: BASOPHILS % (AUTO) 0.2 % (0.0-2.0); HEMATOCRIT 31 % (33-45); HEMOGLOBIN 10.1 g/dL (11.5-14.8); LYMPHOCYTES % (AUTO) 5.7 % (20.0-44.0); MEAN CORPUSCULAR HGB CONC 33 g/dl (31.0-36.0); MEAN CORPUSCULAR VOLUME 89 fL (82-100); MONOCYTES # (AUTO) 0.7 /CMM (0.1-1.30); MONOCYTES % (AUTO) 3.8 % (2.0-12.0); NEUTROPHILS # (AUTO) 16.4 /CMM (1.8-8.9); NEUTROPHILS % (AUTO) 90.3 % (43.0-81.0); PLATELET COUNT (AUTO) 416 /CMM (150-450); RED BLOOD CELL COUNT(AUTO) 3.45 MIL/uL (4.0-5.2); WHITE BLOOD COUNT (AUTO) 18.2 K/uL (4.3-11.0)
[2019-10-11 07:22] LABS: CALCIUM, SERUM 8.5 mg/dL (8.5-10.1); CREATININE 1.5 mg/dL (0.6-1.3); POTASSIUM 4.6 mmol/L (3.5-5.1)
[2019-10-11 08:00] VITALS: BP 100/61
[2019-10-11] MEDS: LEVOTHYROXINE SODIUM 50 MCG TABLET PO SCH (08:38)
[2019-10-11] MEDS: MONTELUKAST SODIUM (10MG) 10 MG TABLET PO SCH (08:38)
[2019-10-11] MEDS: TOPIRAMATE 25 MG TABLET PO SCH (08:38)
[2019-10-11] MEDS: RIVAROXABAN 15 MG TABLET PO SCH ×2 (08:38→16:07)
[2019-10-11] MEDS: Paricalcitol 1 MCG PO SCH (08:41)
[2019-10-11] MEDS ORDERED: METH4TAB3 PO (08:44)
[2019-10-11] MEDS ORDERED: LORA-259 PO (12:15)
[2019-10-11] MEDS: SOD FERRIC GLUC 125 MG in IV NS 0.9% 100 ML IV SCH (14:16)
[2019-10-11 16:00] VITALS: BP 105/73
[2019-10-13 22:13] LABS: *MYCOPLASMA PNEUMONIAE IgG 167 U/mL (0-99); *MYCOPLASMA PNEUMONIAE IgM <770 U/mL (0-769)
== END 2019-10-11 20:50 | disposition home health service (06) | DRG 291 ==
LOC: ER 08:40 → TELE 11:44 → MED 10-01 08:34 → TELE 10-03 11:28 → MED 10-04 11:09
PROVIDERS: ADMIT Internal Medicine; ATTEND Nurse Practitioner Acute Care
DX: I13.0 Hypertensive heart and chronic kidney disease with heart failure and stage 1 through stage 4 chronic kidney disease, or unspecified chronic kidney disease (principal); J96.01 Acute respiratory failure with hypoxia; I50.33 Acute on chronic diastolic (congestive) heart failure; N17.0 Acute kidney failure with tubular necrosis; D68.69 Other thrombophilia; J44.9 Chronic obstructive pulmonary disease, unspecified; N18.3 Chronic kidney disease, stage 3 (moderate); E03.9 Hypothyroidism, unspecified; M79.7 Fibromyalgia; J45.909 Unspecified asthma, uncomplicated; R07.81 Pleurodynia; G40.909 Epilepsy, unspecified, not intractable, without status epilepticus; D72.829 Elevated white blood cell count, unspecified; R73.9 Hyperglycemia, unspecified; F41.9 Anxiety disorder, unspecified; I48.0 Paroxysmal atrial fibrillation; R53.1 Weakness; R26.81 Unsteadiness on feet; G25.81 Restless legs syndrome; Z90.2 Acquired absence of lung [part of]; Z91.14 Patient's other noncompliance with medication regimen; D50.9 Iron deficiency anemia, unspecified
CPT/HCPCS: 36415; 36600; 71045-TC; 71250-TC; 78582; 80048-TC; 80053-TC; 80061-TC; 80076-TC; 81000-TC; 82550-TC; 82728-TC; 83540-TC; 83735-TC; 83880; 83970; 84100-TC; 84155; 84155-TC; 84165; 84300-TC; 84439-TC; 84443-TC; 84481; 84484-TC; 85025-TC; 85610-TC; 85730-TC; 86713; 86738; 87081-TC; 93307-TC; 93970-TC; 94799-TC; 97116-TC; 97530-TC; A9540; A9567; G0378; J0780; J1160; J1650; J1940; J1956; J2060; J2270; J2405; J2916; J2930; J2997; J3490; J7030; J7050; J7060; Q0163